=== PATIENT | female | born 1965 | race Native Hawaiian/Other Pacific Islander ===

== ENCOUNTER 2020-10-10 18:17 | Inpatient (IN) | payer MEDICAID, OTHER ==
[~2020-10-10] VITALS: Ht 162.6 cm; Wt 161.4 kg
[2020-10-10 20:40] LABS: Basophils # (auto) 0.1 10 ^3/uL (0-0.2); Basophils % (auto) 0.5 % (0.0-2.0); Eosinophils # (auto) 0.1 10 ^3/uL (0-0.8); Eosinophils % (auto) 0.4 % (0.0-7.0); Hematocrit 48.1 % (36.0-46.0); Hemoglobin 15.7 g/dL (12.2-16.2); Lymphocytes # (auto) 2.9 10 ^3/uL (0.4-5.4); Lymphocytes % (auto) 22.7 % (10.0-50.0); Mean Corpuscular Hemoglobin 29.8 pg (28.0-32.0); Mean Corpuscular Hgb Conc. 32.7 g/dL (32.0-36.0); Mean Corpuscular Volume 91.1 fL (80.0-100.0); Monocytes # (auto) 0.8 10 ^3/uL (0-1.3); Monocytes % (auto) 6.5 % (0.0-12.0); Neutrophils % (auto) 69.9 % (37.0-80.0); Nucleated Red Blood Cells % 0.3 %; Platelet Count (auto) 263 10^3/uL (140-450); Red Blood Cells 5.28 10^6/uL (4.0-5.20); Red Cell Distribution Width 14.1 % (11.8-14.3); White Blood Cell 12.8 10^3/uL (4.4-10.8)
[2020-10-10] MEDS ORDERED: cefTRIAXone 1GM/50ML D5W 50 ML IV ONE (20:45)
[2020-10-10] MEDS ORDERED: DexAMETHasone SOD PHOS 10MG/1ML VIAL INJ IV ONE (20:45)
[2020-10-10] MEDS ORDERED: AZITHROMYCIN 500MG/ 250ML 250 ML IV ONE (20:45)
[2020-10-10 21:00] LABS: Albumin 3.3 g/dL (3.4-5.0); Anion Gap 3 (5-15); Blood Urea Nitrogen 22 mg/dL (7-18); Calcium 9.1 mg/dL (8.5-10.1); Carbon Dioxide 33 mmol/L (21-32); Chloride 105 mmol/L (98-107); Glucose 101 mg/dL (74-106); Potassium 3.8 mmol/L (3.5-5.1); Sodium 141 mmol/L (136-145)
[2020-10-10 21:04] LABS: Alanine Aminotransferase 25 U/L (13-56); Alkaline Phosphatase 70 U/L (45-117); Aspartate Aminotransferase 11 U/L (15-37); BUN/Creatinine Ratio 18.8; Bilirubin, Total 0.3 mg/dL (0.2-1.0); GFR African American 62 mL/min; GFR Non-African American 51 mL/min; Total Protein 7.7 g/dL (6.4-8.2)
[2020-10-10] MEDS ORDERED: NITROGLYCERIN 0.4 MG SL TAB SL PRN (22:15)
[2020-10-10] MEDS ORDERED: ONDANSETRON HCL 4 MG/2 ML VIAL IV PRN (22:15)
[2020-10-10] MEDS ORDERED: ACETAMINOPHEN 325 MG TAB PO PRN (22:15)
[2020-10-10] MEDS ORDERED: TEMAZEPAM 15 MG CAP PO PRN (22:15)
[2020-10-10] MEDS ORDERED: DEXTROSE (50%) 50ML SYRG IV PRN (22:15)
[2020-10-10] MEDS ORDERED: MORPHINE SULF INJ 2 MG/ML SYRINGE 1ML IV PRN (22:15)
[2020-10-11] VITALS (7 sets, daily range): BP systolic 96–143; BP diastolic 58–80
[2020-10-11] MEDS: IPRATROPIUM BROM 0.5 MG/2.5ML INH SOL NEB SCH ×4 (00:59→18:44)
[2020-10-11] MEDS: ALBUTEROL SULF 2.5 MG/0.5ML(0.5%) NEB SOLN NEB SCH ×4 (00:59→18:44)
[2020-10-11] MEDS ORDERED: METF-370 PO (04:53)
[2020-10-11] MEDS ORDERED: HYDR-4296 PO (04:53)
[2020-10-11] MEDS ORDERED: DILT360C6 PO (04:53)
[2020-10-11] MEDS: ACCU-CHEK COMFORT CURVE STRIP VI SCH ×4 (06:38→23:40)
[2020-10-11] MEDS: InsuLIN REG 1unit/0.01ml Soln (100units/ml) SC SCH ×4 (06:40→22:00)
[2020-10-11 08:44] LABS: Basophils # (auto) 0 10 ^3/uL (0-0.2); Basophils % (auto) 0.3 % (0.0-2.0); Eosinophils # (auto) 0 10 ^3/uL (0-0.8); Hematocrit 46.2 % (36.0-46.0); Hemoglobin 14.7 g/dL (12.2-16.2); Lymphocytes # (auto) 0.9 10 ^3/uL (0.4-5.4); Lymphocytes % (auto) 7.7 % (10.0-50.0); Mean Corpuscular Hemoglobin 29.6 pg (28.0-32.0); Mean Corpuscular Hgb Conc. 31.9 g/dL (32.0-36.0); Mean Corpuscular Volume 92.8 fL (80.0-100.0); Monocytes # (auto) 0.2 10 ^3/uL (0-1.3); Monocytes % (auto) 1.8 % (0.0-12.0); Neutrophils # (auto) 10.5 10 ^3/uL (1.6-8.6); Neutrophils % (auto) 90.2 % (37.0-80.0); Platelet Count (auto) 261 10^3/uL (140-450); Red Blood Cells 4.98 10^6/uL (4.0-5.20); Red Cell Distribution Width 14.3 % (11.8-14.3); White Blood Cell 11.6 10^3/uL (4.4-10.8)
[2020-10-11 09:01] LABS: BUN/Creatinine Ratio 17.5; Calcium 8.7 mg/dL (8.5-10.1); Potassium 4.7 mmol/L (3.5-5.1)
[2020-10-11] MEDS: ASCORBIC ACID 500 MG TAB PO SCH ×2 (09:26→23:39)
[2020-10-11] MEDS: ENOXAPARIN SOD 40 MG/0.4 ML SYRINGE SC SCH (09:27)
[2020-10-11] MEDS: DexAMETHasone SOD PHOS 10MG/1ML VIAL INJ IV SCH (09:28)
[2020-10-11] MEDS: cefTRIAXone 1GM/50ML D5W 50 ML IV SCH (09:28)
[2020-10-11] MEDS: PANTOPRAZOLE 40 MG TAB PO SCH (09:32)
[2020-10-11] MEDS: FAMOTIDINE 20 MG TAB PO SCH (09:32)
[2020-10-11] MEDS: ZINC SULFATE 220mg CAP or TAB PO SCH (09:32)
[2020-10-11] MEDS ORDERED: AZITHROMYCIN 500MG/ 250ML 250 ML IV SCH (10:00)
[2020-10-11] MEDS: LACTULOSE 20Gm/30ML SOLN PO PRN (13:17)
[2020-10-11] MEDS: guaiFENesin-CODEINE Liq 5 ML UD PO PRN ×2 (13:18→18:07)
[2020-10-11] MEDS ORDERED: hydrALAZINE HCL 25 MG TAB PO SCH (22:00)
[2020-10-12] MEDS: IPRATROPIUM BROM 0.5 MG/2.5ML INH SOL NEB SCH ×4 (00:05→20:08)
[2020-10-12] MEDS: ALBUTEROL SULF 2.5 MG/0.5ML(0.5%) NEB SOLN NEB SCH ×4 (00:05→20:08)
[2020-10-12 01:53] LABS: Urine Bacteria NONE SEEN /hpf (None Seen); Urine Blood Negative /uL (Negative); Urine Specific Gravity 1.024 (1.001-1.035); Urine WBC 1 /hpf (0 - 5)
[2020-10-12] MEDS ORDERED: BUME2TAB5 PO (03:10)
[2020-10-12] MEDS ORDERED: AMIO200T33 PO (03:10)
[2020-10-12] MEDS ORDERED: TIOT17SP IN (03:10)
[2020-10-12] MEDS ORDERED: RIV20T PO (03:13)
[2020-10-12] MEDS ORDERED: HYDR25TA4 PO (03:19)
[2020-10-12] MEDS ORDERED: PRED10TA PO (03:19)
[2020-10-12 05:10] VITALS: BP 137/72
[2020-10-12] MEDS: ACCU-CHEK COMFORT CURVE STRIP VI SCH ×4 (06:44→21:47)
[2020-10-12] MEDS: InsuLIN REG 1unit/0.01ml Soln (100units/ml) SC SCH ×4 (06:47→21:48)
[2020-10-12] MEDS: LACTULOSE 20Gm/30ML SOLN PO PRN (06:47)
[2020-10-12 07:06] LABS: Basophils # (auto) 0 10 ^3/uL (0-0.2); Basophils % (auto) 0.1 % (0.0-2.0); Eosinophils # (auto) 0 10 ^3/uL (0-0.8); Hematocrit 44.3 % (36.0-46.0); Hemoglobin 14.4 g/dL (12.2-16.2); Lymphocytes # (auto) 1.3 10 ^3/uL (0.4-5.4); Lymphocytes % (auto) 9.2 % (10.0-50.0); Mean Corpuscular Hemoglobin 29.8 pg (28.0-32.0); Mean Corpuscular Hgb Conc. 32.5 g/dL (32.0-36.0); Mean Corpuscular Volume 91.6 fL (80.0-100.0); Monocytes # (auto) 0.7 10 ^3/uL (0-1.3); Monocytes % (auto) 4.7 % (0.0-12.0); Nucleated Red Blood Cells % 0.1 %; Platelet Count (auto) 262 10^3/uL (140-450); Red Blood Cells 4.84 10^6/uL (4.0-5.20); Red Cell Distribution Width 13.9 % (11.8-14.3); White Blood Cell 13.9 10^3/uL (4.4-10.8)
[2020-10-12 07:25] LABS: Calcium 8.7 mg/dL (8.5-10.1); Potassium 4.3 mmol/L (3.5-5.1)
[2020-10-12 07:31] LABS: BUN/Creatinine Ratio 25.2; Bilirubin, Total 0.5 mg/dL (0.2-1.0); Total Protein 7.2 g/dL (6.4-8.2)
[2020-10-12 08:44] VITALS: BP 128/87
[2020-10-12] MEDS: DexAMETHasone SOD PHOS 10MG/1ML VIAL INJ IV SCH (09:09)
[2020-10-12] MEDS: PANTOPRAZOLE 40 MG TAB PO SCH (09:10)
[2020-10-12] MEDS: ZINC SULFATE 220mg CAP or TAB PO SCH (09:10)
[2020-10-12] MEDS: ENOXAPARIN SOD 40 MG/0.4 ML SYRINGE SC SCH (09:10)
[2020-10-12] MEDS: cefTRIAXone 1GM/50ML D5W 50 ML IV SCH (09:10)
[2020-10-12] MEDS: FAMOTIDINE 20 MG TAB PO SCH (09:10)
[2020-10-12] MEDS: ASCORBIC ACID 500 MG TAB PO SCH ×2 (09:10→21:47)
[2020-10-12] MEDS: AZITHROMYCIN 250 MG TAB PO SCH (09:11)
[2020-10-12] MEDS ORDERED: dilTIAZem HCL 180MG ER CAP PO SCH (10:00)
[2020-10-12] MEDS ORDERED: predniSONE 20 MG TAB PO ONE (10:30)
[2020-10-12] MEDS ORDERED: HCTZ 25 MG TAB PO ONE (10:30)
[2020-10-12] MEDS ORDERED: AMIODARONE HCL 200 MG TAB PO ONE (10:30)
[2020-10-12] MEDS ORDERED: BUMETANIDE 1 MG TAB PO ONE (10:30)
[2020-10-12] MEDS: APIXABAN 5 MG TAB PO SCH ×2 (12:00→21:46)
[2020-10-12 13:00] VITALS: BP 124/93
[2020-10-12 16:40] VITALS: BP 139/70
[2020-10-12] MEDS ORDERED: RIVAROXABAN 15 MG TAB PO SCH (18:00)
[2020-10-12] MEDS ORDERED: ALBUTEROL SULF 2.5 MG/0.5ML(0.5%) NEB SOLN NEB PRN (20:15)
[2020-10-12] MEDS ORDERED: IPRATROPIUM BROM 0.5 MG/2.5ML INH SOL NEB PRN (20:15)
[2020-10-12 22:39] VITALS: BP 130/85
[2020-10-13] MEDS: ALBUTEROL SULF 2.5 MG/0.5ML(0.5%) NEB SOLN NEB SCH ×4 (00:37→18:49)
[2020-10-13] MEDS: IPRATROPIUM BROM 0.5 MG/2.5ML INH SOL NEB SCH ×4 (00:37→18:49)
[2020-10-13 05:17] VITALS: BP 121/79
[2020-10-13 05:42] LABS: Basophils # (auto) 0 10 ^3/uL (0-0.2); Basophils % (auto) 0.3 % (0.0-2.0); Eosinophils # (auto) 0 10 ^3/uL (0-0.8); Hematocrit 49.5 % (36.0-46.0); Hemoglobin 15.5 g/dL (12.2-16.2); Lymphocytes # (auto) 1.1 10 ^3/uL (0.4-5.4); Lymphocytes % (auto) 7.8 % (10.0-50.0); Mean Corpuscular Hemoglobin 29.5 pg (28.0-32.0); Mean Corpuscular Hgb Conc. 31.4 g/dL (32.0-36.0); Monocytes # (auto) 0.7 10 ^3/uL (0-1.3); Monocytes % (auto) 4.8 % (0.0-12.0); Neutrophils % (auto) 87.1 % (37.0-80.0); Nucleated Red Blood Cells % 0.1 %; Platelet Count (auto) 274 10^3/uL (140-450); Red Blood Cells 5.26 10^6/uL (4.0-5.20); Red Cell Distribution Width 14.2 % (11.8-14.3); White Blood Cell 13.8 10^3/uL (4.4-10.8)
[2020-10-13] MEDS: ACCU-CHEK COMFORT CURVE STRIP VI SCH ×4 (05:51→21:04)
[2020-10-13] MEDS: InsuLIN REG 1unit/0.01ml Soln (100units/ml) SC SCH ×4 (06:01→21:06)
[2020-10-13] MEDS: cefTRIAXone 1GM/50ML D5W 50 ML IV SCH (08:53)
[2020-10-13] MEDS: ZINC SULFATE 220mg CAP or TAB PO SCH (08:57)
[2020-10-13] MEDS: APIXABAN 5 MG TAB PO SCH ×2 (08:57→21:04)
[2020-10-13] MEDS: ASCORBIC ACID 500 MG TAB PO SCH ×2 (08:58→21:04)
[2020-10-13] MEDS: AZITHROMYCIN 250 MG TAB PO SCH (08:59)
[2020-10-13 09:00] VITALS: BP 124/85
[2020-10-13] MEDS: PANTOPRAZOLE 40 MG TAB PO SCH (09:00)
[2020-10-13] MEDS: predniSONE 20 MG TAB PO SCH (09:00)
[2020-10-13] MEDS: FAMOTIDINE 20 MG TAB PO SCH (09:00)
[2020-10-13] MEDS: BUMETANIDE 1 MG TAB PO SCH (09:03)
[2020-10-13] MEDS: DexAMETHasone SOD PHOS 10MG/1ML VIAL INJ IV SCH (09:04)
[2020-10-13] MEDS ORDERED: HCTZ 25 MG TAB PO SCH (10:00)
[2020-10-13] MEDS ORDERED: AMIODARONE HCL 200 MG TAB PO SCH (10:00)
[2020-10-13 10:37] LABS: Albumin 3.1 g/dL (3.4-5.0); Potassium 3.9 mmol/L (3.5-5.1)
[2020-10-13 10:40] LABS: BUN/Creatinine Ratio 31.2; Bilirubin, Total 0.2 mg/dL (0.2-1.0); Total Protein 7.3 g/dL (6.4-8.2)
[2020-10-13 12:43] VITALS: BP 140/93
[2020-10-13] MEDS: Glucerna Carbsteady SHAKE Vanilla 8oz PO SCH ×2 (12:58→18:01)
[2020-10-13] MEDS ORDERED: OMNIPAQUE ORAL SOLN 500ml 12mg/ml PO ONE (16:17)
[2020-10-13 16:34] VITALS: BP 143/85
[2020-10-13] MEDS: CARVEDILOL 3.125 MG TAB PO SCH (21:04)
[2020-10-13 22:00] VITALS: BP 119/75
[2020-10-14] VITALS (7 sets, daily range): BP systolic 92–141; BP diastolic 65–80
[2020-10-14] MEDS: IPRATROPIUM BROM 0.5 MG/2.5ML INH SOL NEB SCH ×4 (00:01→19:34)
[2020-10-14] MEDS: ALBUTEROL SULF 2.5 MG/0.5ML(0.5%) NEB SOLN NEB SCH ×4 (00:01→19:34)
[2020-10-14] MEDS: ACCU-CHEK COMFORT CURVE STRIP VI SCH ×4 (06:08→21:34)
[2020-10-14] MEDS: InsuLIN REG 1unit/0.01ml Soln (100units/ml) SC SCH ×4 (06:09→21:34)
[2020-10-14 06:28] LABS: Basophils # (auto) 0 10 ^3/uL (0-0.2); Basophils % (auto) 0.1 % (0.0-2.0); Eosinophils # (auto) 0 10 ^3/uL (0-0.8); Hematocrit 47.1 % (36.0-46.0); Hemoglobin 15.4 g/dL (12.2-16.2); Lymphocytes # (auto) 1.4 10 ^3/uL (0.4-5.4); Lymphocytes % (auto) 10.9 % (10.0-50.0); Mean Corpuscular Hemoglobin 29.6 pg (28.0-32.0); Mean Corpuscular Hgb Conc. 32.6 g/dL (32.0-36.0); Mean Corpuscular Volume 90.7 fL (80.0-100.0); Monocytes # (auto) 0.9 10 ^3/uL (0-1.3); Monocytes % (auto) 6.6 % (0.0-12.0); Neutrophils # (auto) 10.9 10 ^3/uL (1.6-8.6); Neutrophils % (auto) 82.4 % (37.0-80.0); Platelet Count (auto) 294 10^3/uL (140-450); Red Blood Cells 5.19 10^6/uL (4.0-5.20); Red Cell Distribution Width 14.1 % (11.8-14.3); White Blood Cell 13.2 10^3/uL (4.4-10.8)
[2020-10-14 06:44] LABS: Potassium 4.3 mmol/L (3.5-5.1)
[2020-10-14 06:49] LABS: BUN/Creatinine Ratio 38.9; Calcium 9.1 mg/dL (8.5-10.1)
[2020-10-14] MEDS: Glucerna Carbsteady SHAKE Vanilla 8oz PO SCH ×3 (08:00→18:36)
[2020-10-14] MEDS: cefTRIAXone 1GM/50ML D5W 50 ML IV SCH (09:20)
[2020-10-14] MEDS: ASCORBIC ACID 500 MG TAB PO SCH ×2 (09:21→21:34)
[2020-10-14] MEDS: PANTOPRAZOLE 40 MG TAB PO SCH (09:21)
[2020-10-14] MEDS: FAMOTIDINE 20 MG TAB PO SCH (09:21)
[2020-10-14] MEDS: DexAMETHasone SOD PHOS 10MG/1ML VIAL INJ IV SCH (09:21)
[2020-10-14] MEDS: APIXABAN 5 MG TAB PO SCH ×2 (09:21→21:33)
[2020-10-14] MEDS: AZITHROMYCIN 250 MG TAB PO SCH (09:22)
[2020-10-14] MEDS: BUMETANIDE 1 MG TAB PO SCH (09:22)
[2020-10-14] MEDS: CARVEDILOL 3.125 MG TAB PO SCH ×2 (09:23→21:33)
[2020-10-14] MEDS: ZINC SULFATE 220mg CAP or TAB PO SCH (09:26)
[2020-10-14] MEDS: predniSONE 20 MG TAB PO SCH (09:26)
[2020-10-14] MEDS ORDERED: CALCIUM CARB 500 MG CHEW TAB PO PRN (15:00)
[2020-10-15] MEDS: ALBUTEROL SULF 2.5 MG/0.5ML(0.5%) NEB SOLN NEB SCH ×4 (00:49→18:08)
[2020-10-15] MEDS: IPRATROPIUM BROM 0.5 MG/2.5ML INH SOL NEB SCH ×4 (00:49→18:10)
[2020-10-15 05:00] VITALS: BP 101/58
[2020-10-15 06:01] LABS: Basophils # (auto) 0 10 ^3/uL (0-0.2); Basophils % (auto) 0.2 % (0.0-2.0); Eosinophils # (auto) 0 10 ^3/uL (0-0.8); Eosinophils % (auto) 0.1 % (0.0-7.0); Hematocrit 47.3 % (36.0-46.0); Hemoglobin 15.9 g/dL (12.2-16.2); Lymphocytes # (auto) 1.4 10 ^3/uL (0.4-5.4); Lymphocytes % (auto) 10.6 % (10.0-50.0); Mean Corpuscular Hemoglobin 30.4 pg (28.0-32.0); Mean Corpuscular Hgb Conc. 33.5 g/dL (32.0-36.0); Mean Corpuscular Volume 90.7 fL (80.0-100.0); Monocytes # (auto) 0.9 10 ^3/uL (0-1.3); Monocytes % (auto) 6.7 % (0.0-12.0); Neutrophils # (auto) 11.2 10 ^3/uL (1.6-8.6); Neutrophils % (auto) 82.4 % (37.0-80.0); Nucleated Red Blood Cells % 0.1 %; Platelet Count (auto) 281 10^3/uL (140-450); Red Blood Cells 5.22 10^6/uL (4.0-5.20); Red Cell Distribution Width 13.8 % (11.8-14.3); White Blood Cell 13.6 10^3/uL (4.4-10.8)
[2020-10-15] MEDS: ACCU-CHEK COMFORT CURVE STRIP VI SCH ×4 (06:11→21:58)
[2020-10-15] MEDS: InsuLIN REG 1unit/0.01ml Soln (100units/ml) SC SCH ×4 (06:11→21:57)
[2020-10-15 06:22] LABS: Potassium 4.1 mmol/L (3.5-5.1)
[2020-10-15 06:28] LABS: BUN/Creatinine Ratio 35.1; Calcium 8.9 mg/dL (8.5-10.1); Magnesium 2.8 mg/dL (1.6-2.6)
[2020-10-15 09:00] VITALS: BP 137/85
[2020-10-15] MEDS: DexAMETHasone SOD PHOS 10MG/1ML VIAL INJ IV SCH (09:37)
[2020-10-15] MEDS: cefTRIAXone 1GM/50ML D5W 50 ML IV SCH (09:37)
[2020-10-15] MEDS: ZINC SULFATE 220mg CAP or TAB PO SCH (09:38)
[2020-10-15] MEDS: BUMETANIDE 1 MG TAB PO SCH (09:38)
[2020-10-15] MEDS: APIXABAN 5 MG TAB PO SCH ×2 (09:39→21:53)
[2020-10-15] MEDS: CARVEDILOL 3.125 MG TAB PO SCH ×2 (09:39→21:53)
[2020-10-15] MEDS: PANTOPRAZOLE 40 MG TAB PO SCH (09:40)
[2020-10-15] MEDS: ASCORBIC ACID 500 MG TAB PO SCH ×2 (09:40→21:53)
[2020-10-15] MEDS: AZITHROMYCIN 250 MG TAB PO SCH (09:40)
[2020-10-15] MEDS: Glucerna Carbsteady SHAKE Vanilla 8oz PO SCH ×3 (09:45→18:00)
[2020-10-15 13:00] VITALS: BP 114/74
[2020-10-15] MEDS ORDERED: LORazepam 2MG/ML-1ML VIAL IV ONE (14:45)
[2020-10-15 17:00] VITALS: BP 114/72
[2020-10-15] MEDS ORDERED: LORazepam 2MG/ML-1ML VIAL IV PRN (21:30)
[2020-10-15 22:00] VITALS: BP 112/83
[2020-10-16 05:00] VITALS: BP 128/86
[2020-10-16] MEDS: ALBUTEROL SULF 2.5 MG/0.5ML(0.5%) NEB SOLN NEB SCH ×3 (06:00→12:58)
[2020-10-16] MEDS: IPRATROPIUM BROM 0.5 MG/2.5ML INH SOL NEB SCH ×3 (06:00→12:58)
[2020-10-16 06:05] LABS: Basophils # (auto) 0.1 10 ^3/uL (0-0.2); Basophils % (auto) 0.3 % (0.0-2.0); Eosinophils # (auto) 0 10 ^3/uL (0-0.8); Hematocrit 49.6 % (36.0-46.0); Hemoglobin 16.6 g/dL (12.2-16.2); Lymphocytes # (auto) 1.3 10 ^3/uL (0.4-5.4); Mean Corpuscular Hemoglobin 30.4 pg (28.0-32.0); Mean Corpuscular Hgb Conc. 33.5 g/dL (32.0-36.0); Mean Corpuscular Volume 90.8 fL (80.0-100.0); Monocytes # (auto) 1.1 10 ^3/uL (0-1.3); Monocytes % (auto) 7.1 % (0.0-12.0); Neutrophils # (auto) 12.4 10 ^3/uL (1.6-8.6); Neutrophils % (auto) 83.6 % (37.0-80.0); Nucleated Red Blood Cells % 0.1 %; Platelet Count (auto) 299 10^3/uL (140-450); Red Blood Cells 5.46 10^6/uL (4.0-5.20); Red Cell Distribution Width 14.1 % (11.8-14.3); White Blood Cell 14.8 10^3/uL (4.4-10.8)
[2020-10-16 06:22] LABS: Magnesium 2.9 mg/dL (1.6-2.6); Potassium 4.3 mmol/L (3.5-5.1)
[2020-10-16 06:24] LABS: BUN/Creatinine Ratio 38.7
[2020-10-16] MEDS: InsuLIN REG 1unit/0.01ml Soln (100units/ml) SC SCH ×2 (06:35→12:31)
[2020-10-16] MEDS: ACCU-CHEK COMFORT CURVE STRIP VI SCH ×2 (06:35→12:29)
[2020-10-16 09:00] VITALS: BP 78/86
[2020-10-16] MEDS ORDERED: predniSONE 20 MG TAB PO SCH (10:00)
[2020-10-16] MEDS: Glucerna Carbsteady SHAKE Vanilla 8oz PO SCH ×2 (10:06→12:33)
[2020-10-16] MEDS: ZINC SULFATE 220mg CAP or TAB PO SCH (10:06)
[2020-10-16] MEDS: BUMETANIDE 1 MG TAB PO SCH (10:07)
[2020-10-16] MEDS: APIXABAN 5 MG TAB PO SCH (10:08)
[2020-10-16] MEDS: CARVEDILOL 3.125 MG TAB PO SCH (10:08)
[2020-10-16] MEDS: PANTOPRAZOLE 40 MG TAB PO SCH (10:09)
[2020-10-16] MEDS: AZITHROMYCIN 250 MG TAB PO SCH (10:09)
[2020-10-16] MEDS: ASCORBIC ACID 500 MG TAB PO SCH (10:09)
[2020-10-16 16:17] VITALS: BP 117/75
[2020-10-16 17:24] VITALS: BP 108/67
== END 2020-10-16 17:00 | disposition home or self-care (01) | DRG 133 ==
LOC: ER 18:17 → TELE 22:15 → TELE-WESTW 10-11 02:35
PROVIDERS: ADMIT Nurse Practitioner; ATTEND Internal Medicine
PROC: 5A09357 Assistance with Respiratory Ventilation, Less than 24 Consecutive Hours, Continuous Positive Airway Pressure (ICD-10-PCS; principal; 2020-10-12)
PROC: 5A09357 Assistance with Respiratory Ventilation, Less than 24 Consecutive Hours, Continuous Positive Airway Pressure (ICD-10-PCS; 2020-10-13)
PROC: 5A09357 Assistance with Respiratory Ventilation, Less than 24 Consecutive Hours, Continuous Positive Airway Pressure (ICD-10-PCS; 2020-10-14)
DX: J96.21 Acute and chronic respiratory failure with hypoxia (principal); N17.0 Acute kidney failure with tubular necrosis; I50.33 Acute on chronic diastolic (congestive) heart failure; J18.9 Pneumonia, unspecified organism; E44.0 Moderate protein-calorie malnutrition; D68.69 Other thrombophilia; E11.22 Type 2 diabetes mellitus with diabetic chronic kidney disease; E11.42 Type 2 diabetes mellitus with diabetic polyneuropathy; J44.1 Chronic obstructive pulmonary disease with (acute) exacerbation; J44.0 Chronic obstructive pulmonary disease with (acute) lower respiratory infection; J20.9 Acute bronchitis, unspecified; N18.9 Chronic kidney disease, unspecified; I27.20 Pulmonary hypertension, unspecified; Z20.822 Contact with and (suspected) exposure to COVID-19; E66.2 Morbid (severe) obesity with alveolar hypoventilation; I48.19 Other persistent atrial fibrillation; I48.92 Unspecified atrial flutter; Z68.44 Body mass index [BMI] 60.0-69.9, adult; J45.901 Unspecified asthma with (acute) exacerbation; G56.03 Carpal tunnel syndrome, bilateral upper limbs; T38.0X5A Adverse effect of glucocorticoids and synthetic analogues, initial encounter; Y92.89 Other specified places as the place of occurrence of the external cause; Z79.01 Long term (current) use of anticoagulants; Z82.49 Family history of ischemic heart disease and other diseases of the circulatory system; Z83.3 Family history of diabetes mellitus; Z99.81 Dependence on supplemental oxygen
CPT/HCPCS: 36415; 36600; 70450; 71045; 80048; 80053; 80061; 81001; 82728; 82805; 82962; 83036; 83735; 83880; 84443; 84484; 85025; 86141; 87040; 87070; 87205; 87426; 93005; 93306; 94640; 94660; 96365; 96367; 97116; 97163; 97530; G0378; J0696; J1100; J1815